=== PATIENT | female | born 1995 | race Caucasian/White ===

== ENCOUNTER 2016-07-18 13:26 | Emergency (ER) | payer OTHER ==
[2016-07-18 13:22] LABS: URINE SOURCE CLEAN CATCH
[2016-07-18 13:26] LABS: URINE APPEARANCE CLEAR; URINE BILIRUBIN NEG (NEG); URINE BLOOD 2+ (NEG); URINE COLOR YELLOW; URINE GLUCOSE NEG (NORM); URINE KETONE NEG (NEG); URINE LEUKOCYTE ESTERASE 3+ (NEG); URINE NITRATE NEG (NEG); URINE PH 5.5 (5-8); URINE PROTEIN NEG (NEG); URINE SPECIFIC GRAVITY 1.025 (1.003-1.035); URINE UROBILINOGEN 0.2 MG/DL (NORM)
[~2016-07-18 13:26] MED LIST: MACROBID100 M1 PO; PRENATAL VITAMI1 TA4 PO; VIBRAMYCIN100 M1 DOB; ZANTAC150 M1 PO; ZOFRAN PO
[2016-07-18 13:27] LABS: MICRO INDICATED? YES
[2016-07-18 13:39] LABS: CULTURE INDICATED? YES; URINE BACTERIA 2+ (NEG); URINE SQUAMOUS EPITHELIAL CELL MODERATE /[HPF]
[2016-07-18 13:40] LABS: URINE MUCUS PRESENT
== END 2016-07-18 14:05 | disposition home or self-care (01) ==
LOC: SED 13:26
PROVIDERS: Emergency Medicine
DX: N30.01 Acute cystitis with hematuria (principal)
CPT/HCPCS: 81003; 84703; 87086; 99284

== ENCOUNTER 2016-10-06 23:02 | Emergency (ER) | payer OTHER ==
--- NOTE | ~2016-10-06 | CT2 ---
[facility] A Service of [facility] RADIOLOGY TEXT RESULTS PATIENT: KAJAL STEWARD LOCATION: [facility] : [birth year] UNIT #: [id number] AGE: [address]: Shelly Valencia MD SEX: F ORDER DR: [id number] [facility] [address] [place], [place] [address] [id number] E MR#: [id number] #: [id number] NAME: KAJAL STEWARD : 1995 SEX: F STUDY DATE/TIME: 10/07/2016 02:19 UNIT: [facility] ROOM: STUDY DESCRIPTION: CT Abd and Pelv W Cont Attending Physician: Shelly Valencia M.D. Ordering Physician: Ed Doctor [id number] [facility] Primary Care Physician: Primary Care Physician No MEDICAL IMAGING REPORT This report is preliminary unless electronic signature is present EXAM Abdomen and pelvis CT, 10/07 at 02:19 INDICATION Generalized abdominal pain with nausea and vomiting for 2 months. TECHNIQUE Axial images were obtained through the abdomen and pelvis following oral and IV contrast administration. Multiplanar reformats were obtained. This CT exam was performed with one or more of the following radiation dose reduction techniques: automatic exposure control, adjustment of mA and/or kV according to patient size, and iterative reconstruction. COMPARISON No comparison. FINDINGS ABDOMEN: Lung bases are clear except for some minimal dependent atelectasis. Gallbladder is normal. There is no biliary obstruction. There is a 4.0 mm nonobstructing stone in the right kidney. No ureteral stones are seen and there is no hydronephrosis. Solid organs are otherwise normal. No adenopathy or free fluid is seen. The GI tract is normal. PELVIS: Urinary bladder is normal. The appendix is normal. The remainder of the GI tract is normal as well. The uterus is unremarkable. There is a large cystic lesion in the anterior pelvis which may reflect a right ovarian cyst. It measures up to 5.5 cm. A dominant left adnexal cyst measures up to 4.3 cm. Free fluid in the cul-de-sac is probably physiologic, possibly from cyst rupture. IMPRESSION [facility] A Service of [facility] RADIOLOGY TEXT RESULTS PATIENT: KAJAL STEWARD LOCATION: [facility] : [birth year] UNIT #: [id number] AGE: [address]: Shelly Valencia MD SEX: F ORDER DR: 1. The GI tract, including the appendix, is normal. 2. 4.0 mm nonobstructing stone in the left kidney. No ureteral stones are seen and there is no hydronephrosis. 3. Large bilateral ovarian cystic lesions, measuring 5.5 cm on the right and 4.3 cm on the left. There is also free fluid in the pelvis which may be physiologic. I would suggest a followup pelvic ultrasound in about 6 weeks to document improvement of these lesions due to their size. Dictated by... Jake Stratton Jr., M.D. THIS IS AN ELECTRONICALLY VERIFIED REPORT Jake Stratton Jr., M.D. at 10/07/2016 9:53 PM BOBBI/denny TD: 10/07/2016 08:42 JOB #: [id number] MEDICAL IMAGING REPORT Page 1 of 1 COPY
--- NOTE | ~2016-10-06 | CT71 ---
[facility] A Service of [facility] RADIOLOGY TEXT RESULTS PATIENT: KAJAL STEWARD LOCATION: [facility] : [birth year] UNIT #: [id number] AGE: [address]: Shelly Valencia MD SEX: F ORDER DR: [id number] [facility] [address] [place], [place] [address] [id number] E MR#: [id number] Acc #: [id number] NAME: KAJAL STEWADR : 1995 SEX: F STUDY DATE/TIME: 10/07/2016 02:13 UNIT: [facility] ROOM: STUDY DESCRIPTION: CT Head Wo Contrast Attending Physician: Shelly Valencia M.D. Ordering Physician: Ed Ravinder Vo M.D. Primary Care Physician: No Primary Care Physician MEDICAL IMAGING REPORT This report is preliminary unless electronic signature is present EXAM Head CT 10/07 at 02:13. INDICATIONS Headache for 2 months. Dizziness. COMPARISON None. TECHNIQUE Axial noncontrast images were obtained from the skull base to the vertex. This CT exam was performed with one or more of the following radiation dose reduction techniques: automatic exposure control, adjustment of mA and/or kV according to patient size, and iterative reconstruction. FINDINGS Ventricular size and configuration are normal. There is no evidence of acute infarct or hemorrhage. There are no extraaxial fluid collections. No mass lesion or mass effect is seen. There are no skull fractures. IMPRESSION Normal noncontrast head CT. Dictated by... Jake Stratton Jr., M.D. THIS IS AN ELECTRONICALLY VERIFIED REPORT Jake Stratton Jr., M.D. at 10/07/2016 9:53 PM CAITLINK/ajime TD: 10/07/2016 08:52 JOB #: [id number] [facility] A Service [facility] RADIOLOGY TEXT RESULTS PATIENT: KAJAL STEWARD LOCATION: [facility] : [birth year] UNIT #: [id number] AGE: [address]: Shelly Valencia MD SEX: F ORDER DR: MEDICAL IMAGING REPORT Page 1 of 1 COPY
[2016-10-07 00:25] LABS: BASOPHIL# 0.1 X10e3 (0-0.3); BASOPHIL% 0.5 % (0-2.5); EOSINOPHIL# 0.2 X10e3 (0-0.7); EOSINOPHIL% 1.5 % (0.0-7.0); HEMATOCRIT 40.9 % (35.0-45.0); LYMPHOCYTE# 2.5 X10e3 (1.0-3.5); LYMPHOCYTE% 23.5 % (17.0-45.0); MEAN CELL VOLUME 84.8 FL (83-96); MEAN CORPUSCULAR HEMOGLOBIN 28.9 PG (28-34); MEAN CORPUSCULAR HGB CONC 34.1 g/dL (30-36); MEAN PLATELET VOLUME 9.4 FL (6.5-11.5); MONOCYTE# 0.8 X10e3 (0-1.0); MONOCYTE% 7.8 % (3.0-12.0); NEUTROPHIL# 7.1 X10e3 (1.5-7.1); NEUTROPHIL% 66.7 % (40-75); PLATELET COUNT 222 X10e3 (140-420); RED BLOOD COUNT 4.83 X10e (3.90-5.30); RED CELL DISTRIBUTION WIDTH 12.7 % (11.0-15.5); WHITE BLOOD COUNT 10.6 X10e3 (4.0-10.5)
[2016-10-07 00:27] LABS: DIFF IND NO
[2016-10-07 00:56] LABS: ALBUMIN SERUM 4.7 g/dL (3.5-5.0); BILIRUBIN, DIRECT 0.1 mg/dL (0.0-0.2); BILIRUBIN,INDIRECT 0.5 mg/dL (0.0-0.9); BILIRUBIN,TOTAL 0.6 mg/dL (0.2-2.0); CALCIUM SERUM 8.5 mg/dL (8.4-10.2); CREATININE SERUM 0.6 mg/dL (0.6-1.4); GLOM FILT RATE Estimated 129.4 mL/min (>60); POTASSIUM 3.3 mmol/L (3.5-5.1); PROTEIN TOTAL SERUM 7.6 g/dL (6.0-8.3)
[2016-10-07 01:37] LABS: URINE SOURCE CLEAN CATCH
[2016-10-07 01:41] LABS: URINE APPEARANCE CLOUDY; URINE BILIRUBIN NEG (NEG); URINE BLOOD TRACE (NEG); URINE COLOR YELLOW; URINE GLUCOSE NEG (NEG); URINE KETONE NEG (NEG); URINE LEUKOCYTE ESTERASE 3+ (NEG); URINE NITRATE NEG (NEG); URINE PH 7.5 (5-8); URINE PROTEIN 1+ (NEG); URINE SPECIFIC GRAVITY 1.031 (1.003-1.035)
[2016-10-07 01:44] LABS: CULTURE INDICATED? YES; URINE BACTERIA AUWI 4+ (NEGATIVE); URINE SQUAMOUS EPITHELIAL CELL MOD /[HPF]; UWBCS1 AUWI 50-100 (0-5)
== END 2016-10-07 03:56 | disposition home or self-care (01) ==
LOC: CED 23:02
DX: N83.209 Unspecified ovarian cyst, unspecified side (principal)
CPT/HCPCS: 36415; 70450; 74177; 80048; 80076; 81003; 83690; 84703; 85025; 87086; 87088; 87186; 96365; 96375; 99284; Q9967